=== PATIENT | female | born 1990 | race Caucasian/White ===

== ENCOUNTER → 2021-11-19 | Outpatient (CLI) | payer OTHER ==
--- NOTE | 2021-11-19 16:15 | US ---
EXAMINATION TYPE: US thyroid st tissue head/neck DATE OF EXAM: 11/19/2021 COMPARISON: NONE CLINICAL HISTORY: E04.1 THYROID NODULE. Palpable nodule GLAND SIZE: Right Lobe: 5.2 x 1.4 x 2.5 cm Overall Parenchyma: heterogenous Left Lobe: 5.1 x 1.0 x 1.6 cm Overall Parenchyma: heterogeneous Isthmus Thickness: 0.2 cm NODULES RIGHT: # of nodules measured on right: 1 1. 2.4 X 2.1 x 1.4 cm, mid , solid or almost completely solid, hypoechoic nodule, which is wider th an tall, with smooth margins, without echogenic foci. Prior size: TAPE CALENDER LEFT: # of nodules measured on left: 0 ISTHMUS: # of nodules measured in the isthmus: 0 Bilateral neck scanned, no evidence of lymphadenopathy. IMPRESSION: Right thyroid lobe 2.4 cm TR-4 nodule. Fine needle aspiration is recommended. 2017 ACR TI-RADS LEVEL: TR-RADS 4 - Moderately Suspicious: Follow if > 1 cm, FNA if > 1.5 cm *Highest TI-RADS level nodule reported
== END | disposition home or self-care (01) ==
LOC: RADUSWWP 14:38 → MERGE 14:38
PROVIDERS: ATTEND Family Medicine
DX: E04.1 Nontoxic single thyroid nodule (principal)
CPT/HCPCS: 76536

== ENCOUNTER 2021-12-26 08:33 | Day surgery (SDC) | payer OTHER ==
[2021-12-26 09:17] VITALS: RESP 16; TEMP 97.9
[2021-12-26 10:00] VITALS: BP 127/73; PULSE 99
--- NOTE | 2021-12-26 10:23 | US ---
ULTRASOUND GUIDED FNA THYROID BIOPSY: CLINICAL HISTORY: Right thyroid nodule FINDINGS: The procedure was explained to the patient. The risks, complications, benefits and alternatives were discussed and any questions were answered. Informed consent was obtained. Patient was placed supin e on the ultrasound table and prepped and draped in the usual sterile fashion. Utilizing a 25 gauge needle, five passes were made into the requested right thyroid nodule. Patient was stable throughout the procedure. Pathology is pending. All elements of maximal barrier technique were utilized. IMPRESSION: 1. Successful ultrasound guided FNA thyroid biopsy.
== END 2021-12-26 09:50 | disposition home or self-care (01) ==
LOC: RADPROMAIN 08:33
PROVIDERS: ATTEND Surgery
DX: E04.1 Nontoxic single thyroid nodule (principal)
CPT/HCPCS: 10005; 88173; 88305

== ENCOUNTER 2022-03-11 07:29 | Day surgery (SDC) | payer OTHER ==
[~2022-03-11 07:29] MED LIST: ACETAMINOPHEN TAB 500 MG TAB PO PRN; HEPARIN SODIUM,PORCINE/PF 5,000 UNIT/0.5 ML SYRINGE SQ PRN; LIDOCAINE 1% (10MG/ML) FOR IV START INTRADERMA PRN; Pre Op ABX Message 1 EACH MISC MISCELLANE ONE
[2022-03-11] MEDS: LACTATED RINGERS 1,000 ML IV SCH ×2 (08:30→09:15)
[2022-03-11] MEDS ORDERED: ONDANSETRON 4 MG/2 ML VIAL ONE (08:42)
[2022-03-11] MEDS: DEXAMETHASONE SOD PHOSPHATE 4 MG/ML 1 ML VIAL IV ONE ×2 (08:48→13:55)
[2022-03-11] MEDS: SCOPOLAMINE 1 MG/72 HR PATCH TRANSDERM ONE ×2 (08:49→13:55)
[2022-03-11] MEDS ORDERED: SUCCINYLCHOLINE CHLORIDE 200 MG/10 ML VIAL IV ONE (09:13)
[2022-03-11] MEDS ORDERED: fentaNYL (PF) 50 MCG/ML 2 ML AMP ONE (09:13)
[2022-03-11] MEDS ORDERED: HYDROmorphone (PF) 1 MG/ML ONE (09:13)
[2022-03-11] MEDS ORDERED: PROPOFOL 10 MG/ML 20 ML VIAL IV ONE (09:13)
[2022-03-11] MEDS ORDERED: MIDAZOLAM 2 MG/2 ML VIAL ONE (09:13)
[2022-03-11] MEDS ORDERED: LIDOCAINE 2% INJ 20 MG/ML (2 ML VIAL) ONE (09:13)
[2022-03-11] MEDS ORDERED: SODIUM CHLORIDE 0.9% 50 ML with ceFAZolin 2,000 MG IV ONE ×2 (09:30)
[2022-03-11] MEDS ORDERED: NALOXONE 0.4 MG/ML 1 ML VIAL IV PRN (10:23)
[2022-03-11] MEDS ORDERED: ACETAMINOPHEN TAB 325 MG TAB PO PRN (10:23)
[2022-03-11] MEDS ORDERED: LACTATED RINGERS 1,000 ML IV ONE (10:23)
[2022-03-11] MEDS ORDERED: HYDROmorphone 0.5 MG/0.5 ML SYRINGE IVP PRN (10:23)
[2022-03-11] MEDS ORDERED: HYDROmorphone 1 MG/ML 1 ML SYRINGE IVP PRN (10:23)
[2022-03-11] MEDS ORDERED: ONDANSETRON 4 MG/2 ML VIAL IVP PRN (10:23)
--- NOTE | 2022-03-11 10:23 | P.OP ---
Date of Procedure: 03/11/22 Preoperative Diagnosis: Right thyroid nodule Postoperative Diagnosis: Right thyroid nodule Procedure(s) Performed: Right thyroid lobectomy Anesthesia: ALLISON Surgeon: Saurabh Hammond Estimated Blood Loss (ml): 5 Pathology: other (Right thyroid lobe) Condition: stable Disposition: PACU Description of Procedure: The patient's placed on the operating table in the supine position. She received general endotracheal anesthesia. Her neck was prepped and draped usual sterile fashion. Standard [place] incision was made approximately 2 cm above the sternal notch. Left cautery used todissect through the platysma and then the platysma flaps were created using electrocautery. and then the strap muscle divided in the midline. Gelpi retractors placed a wound. The right thyroid gland was palpated. There was a 2 cm nodule located in the lower aspect of the lobe. The superior thyroid vessels were dissected first. The vessels were suture ligated after being dissected with a right angle dissector. The vessels were ligated with 2-0 silk ties. Next the inferior thyroid vessels were ligated with 2-0 silk ties. The thyroid gland was rotated medially. Then using this dissection care was taken to identify and preserve the recurrent laryngeal nerve. And then several small middle thyroid veins were ligated using 3-0 silk ties. Using the Harmonic scissors the thyroid was then taken off the trachea. The isthmus and divided in the midline using the Harmonic scissors. The specimens of pathology. Care was taken to identify and preserve the superior and inferior parathyroid gland. The was retrieved cyst. There is no bleeding seen. The strap muscles reapproximated using 3-0 Vicryl suture. This was reapproximated using 3-0 Vicryl suture. Skin was closed interrupted 3-0 Monocryl suture. Dermabond dressing applied. Patient top she will was sent to recovery room in stable condition.
[2022-03-11] MEDS: HYDROmorphone 0.5 MG/0.5 ML SYRINGE IVP PRN ×2 (10:50→11:44)
[2022-03-11 10:52] VITALS: RESP 16
[2022-03-11] MEDS ORDERED: diphenhydrAMINE 50 MG/ML 1 ML VIAL IVP ONE ×3 (10:55→11:55)
[2022-03-11] MEDS ORDERED: diphenhydrAMINE 25 MG CAP PO PRN (12:42)
[2022-03-11] MEDS: HYDROcodone/APAP 5-325MG 1 EACH TAB PO PRN ×3 (14:05→23:18)
[2022-03-11] MEDS: KETOROLAC 15 MG/ML 1 ML VIAL IVP SCH ×3 (14:06→23:20)
[2022-03-12] MEDS: LACTATED RINGERS 1,000 ML IV SCH (05:09)
[2022-03-12] MEDS: KETOROLAC 15 MG/ML 1 ML VIAL IVP SCH ×2 (05:09→11:18)
[2022-03-12 07:46] VITALS: BP 114/75; PULSE 52; TEMP 98.2
[2022-03-12] MEDS: HYDROcodone/APAP 5-325MG 1 EACH TAB PO PRN (08:10)
[2022-03-12] MEDS ORDERED: ENOXAPARIN 40 MG/0.4 ML SYRINGE SQ SCH (09:00)
--- NOTE | 2022-03-12 10:52 | P.DS ---
Providers Expected date of discharge: 03/12/22 Attending physician: Saurabh Hammond Primary care physician: Dexter Chávez MD Hospital Course: Discharge diagnosis 1. Right thyroid nodule status post right thyroid lobectomy Hospital course This is a 31-year-old female with a right thyroid nodule. She is status post right thyroid lobectomy. Tolerated surgery well. Her pain is controlled. She is tolerating diet. No hoarseness reported. She is afebrile. She is stable for discharge. Please refer to chart for any further details. Incision site clean dry and intact. Physician Senior Underwriter note has been reviewed by physician. Signing provider agrees with the documented findings, assessment, and plan of care. Patient Condition at Discharge: Stable Plan - Discharge Summary Discharge Rx Participant: Yes New Discharge Prescriptions: New oxyCODONE HCL [OxyIR] 5 mg PO Q6H PRN 3 Days #12 tab PRN Reason: Pain Continue Bismuth Subsalicylate [Pepto-Bismol] 1 tab PO BID PRN PRN Reason: stomach upset Acetaminophen Tab [Tylenol] 650 mg PO Q6H PRN PRN Reason: Pain Discharge Medication List Bismuth Subsalicylate [Pepto-Bismol] 1 tab PO BID PRN 01/08/22 [History] Acetaminophen Tab [Tylenol] 650 mg PO Q6H PRN 03/06/22 [History] oxyCODONE HCL [OxyIR] 5 mg PO Q6H PRN 3 Days #12 tab 03/12/22 [Rx] Follow up Appointment(s)/Referral(s): Saurabh Hammond MD [STAFF PHYSICIAN] - 1 Week Patient Instructions/Handouts: *Surgery [facility] - Scopalamine Patch Instructions Activity/Diet/Wound Care/Special Instructions: No driving while taking oxyIR No lifting over 10 pounds Shower daily. No soaking or tub baths for 2 weeks Very light activity until you are reevaluated at your follow up appointment with your surgeon Recommend using Tylenol scheduled every 6 hours for the next 24 hours Discharge Disposition: HOME SELF-CARE
== END 2022-03-12 12:16 | disposition home or self-care (01) ==
LOC: OR 07:29 → 4SSUR 10:12 → OR 03-12 12:16
PROVIDERS: ATTEND Surgery
DX: E04.1 Nontoxic single thyroid nodule (principal); K21.9 Gastro-esophageal reflux disease without esophagitis; E07.9 Disorder of thyroid, unspecified; Z98.891 History of uterine scar from previous surgery; Z80.8 Family history of malignant neoplasm of other organs or systems
CPT/HCPCS: 82310; 83970; 60220; J1200; J1100; J2405; J0690; J1170; J1644; 88307; 94760

== ENCOUNTER → 2022-11-12 | Outpatient (CLI) | payer OTHER ==
--- NOTE | 2022-11-13 07:32 | US ---
EXAMINATION TYPE: US thyroid st tissue head/neck DATE OF EXAM: 11/12/2022 COMPARISON: 07/25/21 CLINICAL INDICATION: Female, 32 years old with history of R59.0 LOCALIZED ENLARGED LYMPH NODES; Lump on right lateral neck. Hypoechoic area with fatty hilum seen measuring 2.8 x 2.1 x 0.7cm in area of lump. IMPRESSION: Mildly prominent lymph node noted at the site of clinical concern. Correlate clinically and consider short-term progress study.
== END | disposition home or self-care (01) ==
LOC: RADUSWWP 17:09
PROVIDERS: ATTEND Family Medicine
DX: R59.0 Localized enlarged lymph nodes (principal)
CPT/HCPCS: 76536

== ENCOUNTER → 2023-04-08 | Outpatient (CLI) | payer OTHER ==
--- NOTE | 2023-04-08 15:36 | US ---
EXAMINATION TYPE: US thyroid st tissue head/neck DATE OF EXAM: 04/08/2023 COMPARISON: 11/12/2022 and 07/25/2022 CLINICAL INDICATION: Female, 32 years old with history of E04.1 Thyroid nodule; Right thyroid removed x 6 months ago. Not on thyroid meds. GLAND SIZE: Right Lobe: Surgically absent Left Lobe: 4.9 x 1.4 x 1.3 cm Overall Parenchyma: homogeneous Isthmus Thickness: 0.1 cm NODULES RIGHT: # of nodules measured on right: 0 Right thyroid fossa scanned with hypoechoic homogenous area seen = 1.0 x 0.3 x 0.3 cm, possibly resid ual thyroid tissue. LEFT: # of nodules measured on left: 0 ISTHMUS: # of nodules measured in the isthmus: 0 Bilateral neck scanned with prominent lymph nodes seen bilaterally: Right upper neck: 2.2 x 1.6 x 0.8 cm with cortical thickness= 6.1 mm (versus 2.8 x 2.1 x 0.7 cm previ ously) Left upper neck: 1.8 x 1.0 x 0.6 cm with cortical thickness= 3.6 mm (versus 1.8 x 1.2 x 0.7 cm back o n 07/25/2022) IMPRESSION: 1. Status post right thyroidectomy. There is suspected residual tissue in the right thyroidectomy bed measuring 1 cm. Reassess at follow-up. 2. A prominent lymph node in either submandibular space measuring up to 2.2 x 1.6 cm on the right and 1.8 x 1.0 cm on the left. These measurements are relatively similar back to 07/25/2022 and favor a juana ign reactive/post inflammatory etiology. These can continue to be followed given persistent enlargeme nt.
== END | disposition home or self-care (01) ==
LOC: RADUSWWP 11:50
PROVIDERS: ATTEND Surgery
DX: E04.1 Nontoxic single thyroid nodule (principal); Z90.89 Acquired absence of other organs
CPT/HCPCS: 76536

== ENCOUNTER → 2023-08-21 | Outpatient (CLI) | payer OTHER ==
[2023-08-21 15:44] LABS: Basophils # (A) 0.03 X 10*3/uL (0.00-0.10); Basophils % (A) 0.5 %; Eosinophils # (A) 0.09 X 10*3/uL (0.04-0.35); Eosinophils % (A) 1.4 %; HCT 40.6 % (37.2-50.0); HGB 13.3 g/dL (12.0-17.0); Lymphocytes # (A) 1.98 X 10*3/uL (0.90-5.00); Lymphocytes % (A) 30.6 %; MCH 28.5 pg (27.0-32.0); MCHC 32.8 g/dL (32.0-37.0); MCV 87.1 FL (80.0-97.0); Mean Platelet Volume 11.8 FL (9.5-12.2); Monocytes # (A) 0.34 X 10*3/uL (0.20-1.00); Monocytes % (A) 5.2 %; NRBC Per 100 WBC 0 X 10*3/uL (0.00-0.01); Neutrophils # (A) 4.03 X 10*3/uL (1.80-7.70); Neutrophils % (A) 62.1 %; Platelet Count 170 X 10*3/uL (140-440); RBC 4.66 X 10*6/uL (4.10-5.60); RDW 13.1 % (11.5-14.5); WBC 6.48 X 10*3/uL (4.50-10.00)
[2023-08-21 16:06] LABS: ALT 13 U/L (8-49); AST 19 U/L (13-35); Albumin 4.6 g/dL (3.8-4.9); Alkaline Phosphatase 72 U/L (41-126); BUN/Creat Ratio 13.17 Ratio (12.00-20.00); Blood Urea Nitrogen 7.9 mg/dL (9.0-27.0); Calcium 9.4 mg/dL (8.7-10.3); Carbon Dioxide 22.7 mmol/L (21.6-31.8); Chloride 104 mmol/L (96-109); Globulin 2.3 g/dL (1.6-3.3); Glucose 91 mg/dL (70-110); LDL Cholesterol,Calculated 91.7 mg/dL (0.0-131.0); Sodium 139 mmol/L (135-145); Total Bilirubin 1.3 mg/dL (0.3-1.2); Total Protein 6.9 g/dL (6.2-8.2); VLDL Calculation 9.22 mg/dL (5.00-40.00)
== END | disposition home or self-care (01) ==
LOC: LABWHC1 10:44
PROVIDERS: ATTEND Family Medicine
DX: R63.4 Abnormal weight loss (principal)
CPT/HCPCS: 36415; 80053; 80061; 84443; 85025